=== PATIENT | male | born 1960 | race Caucasian/White ===

== ENCOUNTER 2017-09-21 19:40 | Emergency (ER) | payer OTHER ==
[2017-09-21] MEDS ORDERED: SODIUM CHLORIDE 0.9% 1,000 ML IV STA (20:27)
[2017-09-21] MEDS ORDERED: MECLIZINE 12.5 MG TAB PO STA (20:27)
[2017-09-21] MEDS ORDERED: KETOROLAC 30 MG/ML 1 ML VIAL IVP STA (20:30)
[2017-09-21 20:51] LABS: Basophils # (A) 0.1 k/uL (0-0.2); Basophils % (A) 1 %; Eosinophils # (A) 0.3 k/uL (0-0.7); Eosinophils % (A) 2 %; HCT 46.5 % (39.0-53.0); HGB 15.8 gm/dL (13.0-17.5); Lymphocytes # (A) 4.2 k/uL (1.0-4.8); Lymphocytes % (A) 31 %; MCH 28.5 pg (25.0-35.0); Mean Platelet Volume 7.7; Monocytes # (A) 0.9 k/uL (0-1.0); Monocytes % (A) 7 %; Neutrophils # (A) 7.8 k/uL (1.3-7.7); Neutrophils % (A) 58 %; Platelet Count 269 k/uL (150-450); RBC 5.54 m/uL (4.30-5.90); RDW 13.4 % (11.5-15.5); WBC 13.6 k/uL (3.8-10.6)
[2017-09-21 21:00] LABS: Albumin 4.1 g/dL (3.5-5.0); Calcium 9.2 mg/dL (8.4-10.2); Potassium 3.8 mmol/L (3.5-5.1); Total Bilirubin 0.3 mg/dL (0.2-1.3); Total Protein 6.9 g/dL (6.3-8.2)
--- NOTE | 2017-09-21 21:13 | XR ---
EXAMINATION TYPE: XR chest 2V DATE OF EXAM: 09/21/2017 COMPARISON: NONE HISTORY: Chest pain TECHNIQUE: Frontal and lateral views of the chest are obtained. FINDINGS: There is no focal air space opacity, pleural effusion, or pneumothorax seen. The cardiac silhouette size is upper limits of normal. The osseous structures are intact. IMPRESSION: No acute cardiopulmonary process.
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
[2017-09-21 22:29] VITALS: BP 132/66; PULSE 89; RESP 18; TEMP 98.2
[2017-09-22] MEDS ORDERED: KETOROLAC 30 MG/ML 1 ML VIAL IVP SCH
== END 2017-09-21 22:29 | disposition home or self-care (01) ==
LOC: EC 19:40
DX: G93.0 Cerebral cysts (principal); R42 Dizziness and giddiness; M54.2 Cervicalgia
CPT/HCPCS: 99285; 96374; 96361; 36415; 93005; 80053; 84484; 85025; 71046; 72125; 70450; J1885

== ENCOUNTER → 2019-06-08 | Outpatient (CLI) | payer OTHER ==
--- NOTE | 2019-06-08 22:57 | CONS ---
CONSULTATION REASON FOR CONSULTATION: Sleep apnea. This is a 59-year-old male patient with snoring, sleep fragmentation, frequent nocturnal arousals and chronic hypersomnia and sleepiness. The patient is retired. 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 Since his fdc he has been having an irregular sleep schedule. He goes to bed between 9 p.m. and 2 a.m. and he wakes up from 5 a.m. until 8 a.m. in the morning. He has to wake up on multiple occasions in the middle of the night to utilize the bathroom and he is feeling chronically fatigued and sleepy during the day. He is coming in for further evaluation. He has not gained a significant amount of weight over the years. His current BMI is 33.2. No restlessness in the lower extremities. No sleepwalking or sleeptalking. No parasomnias. No anxiety. No depression. No claustrophobia. PAST MEDICAL HISTORY: Hypertension, hyperlipidemia, coronary artery disease. PAST SURGICAL HISTORY: Right ankle surgery. DRUG ALLERGIES: NOT KNOWN. OUTPATIENT MEDICATION: Outpatient medication includes Lipitor, aspirin, lisinopril and Cardizem. SOCIAL HISTORY: The patient is a nonsmoker. No history of alcoholism. No history of IV drugs. He quit smoking in 2004. FAMILY HISTORY: Negative for sleep apnea. REVIEW OF SYSTEMS: Fourteen-point review of systems was done. Positive findings were all mentioned above in the history of present illness. PHYSICAL EXAMINATION: VITAL SIGNS: BP is 161/93, pulse 106, respirations 16, temperature 98.3, saturation 93% on room air. Height is 5 feet 4 inches, weight 194, BMI 33.2. Bokeelia score is 7. Neck size 17 inches. GENERAL APPEARANCE: Calm, comfortable. HEAD: Atraumatic, normocephalic. NECK: Supple. Mallampati class IV. No goiter or neck masses. LUNGS: Diminished; otherwise clear. HEART: Heart sounds are regular rate and rhythm. Normal S1, S2. No S3, S4. No murmurs. ABDOMEN: Soft, nontender. EXTREMITIES: No edema. No cyanosis or clubbing. NEUROLOGIC: Awake and alert. There is no focal neurological deficit. IMPRESSION: 1. Hypersomnia with an Bokeelia score of 7. The patient has loud snoring, sleep fragmentation in addition to chronic fatigue and tiredness and sleepiness. Consider obstructive sleep apnea. 2. Poor sleep hygiene with irregular sleep-wake cycle. 3. Hypertension. 4. Hyperlipidemia. PLAN: 1. Will set up this patient for a polysomnogram. 2. Implement good sleep hygiene measures. 3. Recommend regulating the sleep-wake cycle. 4. Will continue to follow and make further recommendations based on results of the sleep study. MMODL / IJN: [id number] /
== END | disposition home or self-care (01) ==
LOC: SLEEP 14:11
PROVIDERS: ATTEND Internal Medicine Critical Care Medicine
DX: R06.83 Snoring (principal); I10 Essential (primary) hypertension; E78.5 Hyperlipidemia, unspecified; R53.82 Chronic fatigue, unspecified; Z87.891 Personal history of nicotine dependence; Z79.82 Long term (current) use of aspirin; Z79.899 Other long term (current) drug therapy
CPT/HCPCS: 99211